=== PATIENT | female | born 1960 | race Caucasian/White ===

== ENCOUNTER 2019-04-16 10:01 | Day surgery (SDC) | payer OTHER ==
[~2019-04-16] VITALS: Ht 167.6 cm; Wt 70.3 kg
[~2019-04-16 10:01] MED LIST: AMOCLA875 PO; FISH1000; HYDACE10B; HYDACE5 PO; IBUP800; META800; METR500 PO; PREG50
[2019-04-16] MEDS ORDERED: CALCITRATE200 MG (10:37)
[2019-04-16] MEDS ORDERED: Hair, Skin & N1 EACH (10:37)
== END 2019-04-16 12:35 | disposition home or self-care (01) ==
LOC: ORSCSDS 10:01
PROVIDERS: Podiatrist Foot & Ankle Surgery
PROC: 0QBR0ZZ Excision of Left Toe Phalanx, Open Approach (ICD-10-PCS; principal; 2019-04-16 11:45)
DX: M20.61 Acquired deformities of toe(s), unspecified, right foot (principal); F17.210 Nicotine dependence, cigarettes, uncomplicated; G47.33 Obstructive sleep apnea (adult) (pediatric)
CPT/HCPCS: J0690; J2250; J2405; J2704; J3010; J7120

== ENCOUNTER → 2021-09-03 | Outpatient (CLI) | payer OTHER ==
[~2021-09-03] MED LIST changes: +CALCITRATE200 MG; +Hair, Skin & N1 EACH
== END | disposition home or self-care (01) ==
LOC: LAB SHORT 11:20
PROVIDERS: Nurse Practitioner Family
DX: Z01.419 Encounter for gynecological examination (general) (routine) without abnormal findings (principal)
CPT/HCPCS: G0145

== ENCOUNTER 2022-01-22 04:09 | Emergency (ER) | payer OTHER ==
[~2022-01-22] VITALS: Ht 167.6 cm; Wt 70.3 kg
[2022-01-22] MEDS ORDERED: NEURONTIN300 MG PO (04:30)
== END 2022-01-22 05:32 | disposition home or self-care (01) ==
LOC: ER 04:09
DX: M54.6 Pain in thoracic spine (principal); F17.210 Nicotine dependence, cigarettes, uncomplicated
CPT/HCPCS: 96372; 99283; J1885

== ENCOUNTER 2024-09-24 12:34 | Emergency (ER) | payer OTHER ==
[~2024-09-24] VITALS: Ht 167.6 cm; Wt 75.8 kg
[~2024-09-24 12:34] MED LIST changes: +NEURONTIN300 MG PO
[2024-09-24 12:59] VITALS: BP 127/87
[2024-09-24] MEDS ORDERED: HYDROcodone 10-APAP 325 TAB PO ONE (15:05)
== END 2024-09-24 16:06 | disposition home or self-care (01) ==
LOC: ER 12:34
DX: S82.142A Displaced bicondylar fracture of left tibia, initial encounter for closed fracture (principal); V59.9XXA Occupant (driver) (passenger) of pick-up truck or van injured in unspecified traffic accident, initial encounter; Z79.899 Other long term (current) drug therapy
CPT/HCPCS: 29505; 73562-LT; 73700; 99284-25; A9270